=== PATIENT | male | born 1975 | race Two or more races ===

== ENCOUNTER 2021-06-15 11:05 | Emergency (ER) | payer MEDICAID, OTHER ==
[2021-06-15 11:33] VITALS: BP 147/104
[2021-06-15 12:20] LABS: Salicylate 2.4 mg/dL (2.8-20.0)
[2021-06-15 12:24] LABS: Acetaminophen < 2.0 ug/mL (10-30)
[2021-06-15 13:21] LABS: Alcohol, Urine < 3.0 mg/dL (0-10); Amphetamine Screen, Urine NEGATIVE (NEGATIVE); Barbiturate Scree,Urine NEGATIVE (NEGATIVE); Benzodiazephine Screen, Urine NEGATIVE (NEGATIVE); Cannabinoid Screen, Urine NEGATIVE (NEGATIVE); Cocaine Screen, Urine NEGATIVE (NEGATIVE); Opiate Scree,Urine NEGATIVE (NEGATIVE); Phencyclidine Screen, Urine NEGATIVE (NEGATIVE)
[2021-06-15] MEDS ORDERED: LORazepam 0.5 MG TAB PO ONE (15:15)
[2021-06-15] MEDS ORDERED: diphenhdrAMINE HCL 25 MG CAP PO ONE (15:15)
== END 2021-06-16 09:17 | disposition left against medical advice (07) ==
LOC: ER 11:05
DX: R44.3 Hallucinations, unspecified (principal); I10 Essential (primary) hypertension
CPT/HCPCS: 36415; 80307; 80329

== ENCOUNTER 2023-09-27 09:30 | Emergency (ER) | payer MEDICAID ==
[~2023-09-27] VITALS: Ht 195.6 cm; Wt 83.9 kg
[2023-09-27 10:55] LABS: Alanine Aminotransferase 38 U/L (7-40); Albumin 4.5 g/dL (3.2-4.8); Alkaline Phosphatase 72 U/L (46-116); Anion Gap 7 (5-15); Aspartate Aminotransferase 35 U/L (13-40); BUN/Creatinine Ratio 10.6 (10.0-20.0); Bilirubin, Total 0.4 mg/dL (0.2-1.0); Blood Urea Nitrogen 7 mg/dL (9-23); Calcium 8.9 mg/dL (8.7-10.4); Carbon Dioxide 26 mmol/L (20-30); Chloride 101 mmol/L (98-107); Glucose 103 mg/dL (74-106); Potassium 3.9 mmol/L (3.5-5.1); Sodium 134 mmol/L (136-145)
[2023-09-27 10:56] LABS: Total Protein 7.7 g/dL (5.7-8.2)
[2023-09-27] MEDS ORDERED: ONDANSETRON ODT 4 MG TAB PO ONE (11:30)
[2023-09-27 11:37] LABS: Hematocrit 42.6 % (41.0-53.0); Mean Corpuscular Hemoglobin 30.3 pg (28.0-32.0); Mean Corpuscular Hgb Conc. 32.8 g/dL (32.0-36.0); Mean Corpuscular Volume 92.3 fL (80.0-100.0); Red Blood Cells 4.61 10^6/uL (4.5-5.90); Red Cell Distribution Width 13.2 % (11.8-14.3); White Blood Cell 13.1 10^3/uL (4.4-10.8)
[2023-09-27 11:41] LABS: Basophils % (manual) 0 (0.0-2.0); Blast Cells 0; Eosinophils % (manual) 0 (0-7); Metamyelocytes % 0; Myelocytes % 0; Promyelocytes % 0; Reactive Lymphocytes 0
[2023-09-27 12:01] VITALS: BP 132/82; PULSE 86; RESP 18; TEMP 98; O2SAT 95
[2023-09-27 12:10] LABS: Band Neutrophils % (manual) 4; Lymphocytes % (manual) 16 (10.0-50.0); Monocytes % (manual) 10 (0-12); Platelet Estimate Adequate
[2023-09-27 12:53] LABS: COVID19 ANTIGEN SOFIA FIA NEGATIVE (NEGATIVE)
[2023-09-27 12:54] LABS: Rapid Influenza A Negative (Negative); Rapid Influenza B Negative (Negative)
[2023-09-27] MEDS ORDERED: DOXY-286 PO ×3 (13:06→13:35)
[2023-09-27] MEDS ORDERED: DEXT1SYP9 PO ×3 (13:06→13:35)
[2023-09-27] MEDS ORDERED: DEX4T PO ×3 (13:06→13:35)
== END 2023-09-27 13:44 | disposition home or self-care (01) ==
LOC: ER 09:30
DX: J18.9 Pneumonia, unspecified organism (principal); I10 Essential (primary) hypertension; F20.9 Schizophrenia, unspecified; Z20.822 Contact with and (suspected) exposure to COVID-19
CPT/HCPCS: 36415; 71045; 74176; 80053; 83690; 85007; 85027; 87426; 87804; 99284; Q0162